=== PATIENT | female | born 2005 | race Caucasian/White ===

== ENCOUNTER 2024-09-08 13:26 | Emergency (ER) | payer OTHER ==
[~2024-09-08] VITALS: Ht 172.7 cm; Wt 103.3 kg
[2024-09-08] MEDS ORDERED: FERR325T3 PO (13:41)
[2024-09-08] MEDS ORDERED: MULTTAB20 PO (13:41)
[2024-09-08 16:04] VITALS: BP 147/96; TEMP 97.3; O2SAT 100
== END 2024-09-08 16:06 | disposition home or self-care (01) ==
LOC: M ED 13:26
DX: O26.93 Pregnancy related conditions, unspecified, third trimester (principal); M25.472 Effusion, left ankle; Z88.8 Allergy status to other drugs, medicaments and biological substances; Z3A.37 37 weeks gestation of pregnancy; Z79.899 Other long term (current) drug therapy